=== PATIENT | male | born 1985 | race Caucasian/White ===

== ENCOUNTER 2017-01-27 15:26 | Emergency (ER) | payer OTHER ==
[~2017-01-27] VITALS: Ht 175.3 cm; Wt 79.4 kg
--- NOTE | 2017-01-27 15:35 | NUR ---
[id number] FROM [address]: INTOXICATED. BS IN FIELD BY EMS 110.. PT ASLEEP AT THIS TIME. VSS
--- NOTE | 2017-01-27 16:22 | NUR ---
PT WAS TAKEN TO CT
[2017-01-27 16:26] LABS: BASOPHILS % (AUTO) 0.7 % (0.0-2.0); EOSINOPHILS # (AUTO) 0.2 /CMM (0.0-0.7); EOSINOPHILS % (AUTO) 3.4 % (0.0-6.0); HEMATOCRIT 38 % (39-51); HEMOGLOBIN 12.7 g/dL (13.5-17.5); LYMPHOCYTES # (AUTO) 1.7 /CMM (0.8-4.8); LYMPHOCYTES % (AUTO) 28.7 % (20.0-44.0); MEAN CORPUSCULAR HEMOGLOBIN 28 PG (26.0-33.0); MEAN CORPUSCULAR HGB CONC 34 g/dl (31.0-36.0); MEAN CORPUSCULAR VOLUME 84 fL (80-96); MONOCYTES # (AUTO) 0.5 /CMM (0.1-1.30); MONOCYTES % (AUTO) 8.3 % (2.0-12.0); NEUTROPHILS # (AUTO) 3.6 /CMM (1.8-8.9); NEUTROPHILS % (AUTO) 58.9 % (43.0-81.0); PLATELET COUNT (AUTO) 237 /CMM (150-450); RED BLOOD CELL COUNT(AUTO) 4.49 MIL/uL (4.5-6.0)
[2017-01-27 16:46] LABS: INR 0.96 (0.87-1.13)
[2017-01-27 16:52] LABS: TROPONIN I < 0.017 ng/mL (0.00-0.056)
[2017-01-27 16:57] LABS: THYROID STIMULATING HORMONE 1.219 uIU/mL (0.358-3.74)
[2017-01-27 17:45] LABS: CALCIUM, SERUM 8.7 mg/dL (8.5-10.1); CARBON DIOXIDE 22 mmol/L (21-32); CHLORIDE 104 mmol/L (98-107); CREATININE 0.8 mg/dL (0.6-1.3); GLUCOSE 98 mg/dL (74-106); SALICYLATE 2.4 mg/dL (2.8-20.0); SODIUM SERUM 138 mmol/L (136-145); UREA NITROGEN, BLOOD 12 mg/dL (7-18)
[2017-01-27 17:55] LABS: BILIRUBIN,DIRECT 0.1 mg/dL (0.0-0.2); BILIRUBIN,TOTAL 0.4 mg/dL (0.2-1.0)
[2017-01-27 17:56] LABS: ALKALINE PHOSPHATASE 57 U/L (46-116); ASPARTATE AMINOTRANSFERASE 95 U/L (15-37)
[2017-01-27 17:57] LABS: ACETAMINOPHEN 0 ug/ml (10-30); ALANINE AMINOTRANSFERASE 70 U/L (12-78); TOTAL PROTEIN, SERUM 7.5 g/dL (6.4-8.2)
[2017-01-27 18:00] LABS: ALCOHOL, BLOOD 114 mg/dL (0-0)
[2017-01-27 18:15] LABS: APPEARANCE,URINE CLEAR (CLEAR); BILIRUBIN,URINE NEGATIVE (NEGATIVE); BLOOD, URINE NEGATIVE Ery/uL (NEGATIVE); COLOR,URINE YELLOW (YELLOW); KETONES,URINE NEGATIVE (NEGATIVE); LEUKOCYTE ESTERASE ,URINE NEGATIVE (NEGATIVE); NITRITE, URINE NEGATIVE (NEGATIVE); PROTEIN,URINE NEGATIVE (NEGATIVE); UGLUCOSE NEGATIVE (NEGATIVE); UROBILINOGEN,URINE 0.2 EU/dL (0.2)
--- NOTE | 2017-01-27 18:29 | NUR ---
CALLED [facility] FOR PSYCH EVAL, ETA 1 HOUR
--- NOTE | 2017-01-27 19:00 | NUR ---
[facility] RN AT BEDSIDE
--- NOTE | 2017-01-27 21:24 | NUR ---
PT AWAKE. VSS
--- NOTE | 2017-01-27 23:15 | NUR ---
Patient is resting comfortably in bed with eyes closed. Easily aroused. VSS
--- NOTE | 2017-01-28 02:15 | NUR ---
patient is sleeping comfortably in bed, nad noted.
--- NOTE | 2017-01-28 03:14 | NUR ---
ongoing monitoring. safety in place. nad noted.
[2017-01-28 08:52] VITALS: BP 120/65
--- NOTE | 2017-01-28 09:18 | NUR ---
called kitchen for regular food tray
--- NOTE | 2017-01-28 09:18 | NUR ---
called pharmacy for seromcl
--- NOTE | 2017-01-28 09:35 | NUR ---
PT REFUSED SEROQUEL VERBALIZED HE ONLY TAKES IT AT NIGHT. DR MICHAEL BRAR AWARE
--- NOTE | 2017-01-28 11:20 | NUR ---
Thuan food tray at .
--- NOTE | 2017-01-28 12:30 | NUR ---
IV removed. Catheter intact and site benign. Pressure and 4x4 applied to site. No bleeding noted.
--- NOTE | 2017-01-28 12:39 | NUR ---
Odell provided the patient at .
--- NOTE | 2017-01-28 13:01 | NUR ---
PT VERBALIZED HE WANTS MORE FOOD AND BECAME BELIGIRENT. PT SEEN BY JUAN LUIS AND DR RODRIGUEZ
--- NOTE | 2017-01-28 13:15 | NUR ---
Patient eloped from facility. ER MD notified. DR RODRIGUEZ
== END 2017-01-28 13:19 | disposition left against medical advice (07) ==
LOC: ER 15:31 → EDBD 15:31 → ER 01-28 13:19
DX: Z02.89 Encounter for other administrative examinations (principal); R45.851 Suicidal ideations
CPT/HCPCS: 36415; 70450; 71010; 80048; 80076; 80305; 80329; 81001; 84443; 84484; 85025; 85730; 93005; 99285; A4606; G0480 ×2; Z7610; 81000-TC

== ENCOUNTER 2019-03-09 14:42 | Emergency (ER) | payer OTHER, MEDICAID ==
[~2019-03-09] VITALS: Ht 167.6 cm; Wt 70.8 kg
[2019-03-09] MEDS ORDERED: LORAZEPAM 1 MG TABLET PO ONE (15:30)
[2019-03-09] MEDS ORDERED: BENZTROPINE MESYLATE (2MG/2ML) 2 MG/2 ML AMPUL IM ONE (15:30)
[2019-03-09] MEDS ORDERED: BENZTROPINE MESYLATE (2MG/2ML) 2 MG/2 ML AMPUL ONE (15:34)
[2019-03-09] MEDS ORDERED: LORAZEPAM 1 MG TABLET ONE (15:35)
[2019-03-09 15:43] LABS: BASOPHILS % (AUTO) 0.4 % (0.0-2.0); HEMATOCRIT 42 % (39-51); HEMOGLOBIN 14.2 g/dL (13.5-17.5); LYMPHOCYTES # (AUTO) 1.3 /CMM (0.8-4.8); LYMPHOCYTES % (AUTO) 13.6 % (20.0-44.0); MEAN CORPUSCULAR HGB CONC 34 g/dl (31.0-36.0); MEAN CORPUSCULAR VOLUME 84 fL (80-96); MONOCYTES # (AUTO) 0.7 /CMM (0.1-1.30); MONOCYTES % (AUTO) 6.8 % (2.0-12.0); NEUTROPHILS # (AUTO) 7.6 /CMM (1.8-8.9); NEUTROPHILS % (AUTO) 78.2 % (43.0-81.0); PLATELET COUNT (AUTO) 242 /CMM (150-450); RED BLOOD CELL COUNT(AUTO) 5.02 MIL/uL (4.5-6.0); WHITE BLOOD COUNT (AUTO) 9.7 K/uL (4.3-11.0)
[2019-03-09 15:59] LABS: ALANINE AMINOTRANSFERASE 43 U/L (12-78); ALBUMIN 3.6 g/dL (3.4-5.0); ALCOHOL, BLOOD < 3 mg/dL (0-0); ALKALINE PHOSPHATASE 73 U/L (46-116); ASPARTATE AMINOTRANSFERASE 37 U/L (15-37); BILIRUBIN,DIRECT 0.1 mg/dL (0.0-0.2); BILIRUBIN,TOTAL 0.2 mg/dL (0.2-1.0); CALCIUM, SERUM 9.1 mg/dL (8.5-10.1); CARBON DIOXIDE 25 mmol/L (21-32); CHLORIDE 106 mmol/L (98-107); CREATININE 0.8 mg/dL (0.6-1.3); GLUCOSE 91 mg/dL (74-106); POTASSIUM 3.9 mmol/L (3.5-5.1); SODIUM SERUM 140 mmol/L (136-145); TOTAL PROTEIN, SERUM 7.1 g/dL (6.4-8.2); UREA NITROGEN, BLOOD 15 mg/dL (7-18)
[2019-03-09 16:02] LABS: SALICYLATE < 2.8 mg/dL (2.8-20.0)
--- NOTE | 2019-03-09 17:00 | NUR ---
BIBKATHI AND [employer], FROM [facility], BIZZARRE BEHAVIOR AND BIT HIS TONGUE. ON ROOM AIR, BREATHING EVENLY AND UNLABORED. SITTER AND [employer] AT BEDSIDE FOR CONSTANT MONITORING.
[2019-03-09 17:08] LABS: APPEARANCE,URINE Clear (CLEAR); BILIRUBIN,URINE Negative (NEGATIVE); BLOOD, URINE Negative Ery/uL (NEGATIVE); COLOR,URINE Yellow (YELLOW); KETONES,URINE Negative (NEGATIVE); LEUKOCYTE ESTERASE ,URINE Negative (NEGATIVE); NITRITE, URINE Negative (NEGATIVE); PROTEIN,URINE Negative (NEGATIVE); UGLUCOSE Negative (NEGATIVE); UROBILINOGEN,URINE 0.2 EU/dL (0.2)
--- NOTE | 2019-03-09 17:45 | NUR ---
FOOD PROVIDED AND JUICE ORDERED BY
[2019-03-09 18:39] VITALS: BP 125/81
--- NOTE | 2019-03-09 18:40 | NUR ---
patient discharge in stable condition,in custody. accompanied by ISAK.
== END 2019-03-09 18:39 ==
LOC: ER 14:43
DX: S01.512A Laceration without foreign body of oral cavity, initial encounter (principal); R47.89 Other speech disturbances; F20.9 Schizophrenia, unspecified; F41.9 Anxiety disorder, unspecified; F31.9 Bipolar disorder, unspecified; F10.10 Alcohol abuse, uncomplicated; Y90.0 Blood alcohol level of less than 20 mg/100 ml; W22.8XXA Striking against or struck by other objects, initial encounter; Y93.89 Activity, other specified; Y92.89 Other specified places as the place of occurrence of the external cause; Y99.8 Other external cause status
CPT/HCPCS: 36415; 80048; 80076; 80305; 80307; 80329; 81001; 85025; 96372; 99283; G0480; J0515; 81000-TC

== ENCOUNTER 2022-03-10 05:07 | Emergency (ER) | payer MEDICAID, OTHER ==
[~2022-03-10] VITALS: Ht 165.1 cm; Wt 71.7 kg
--- NOTE | 2022-03-10 05:40 | NUR ---
pt bibself c/o wants vol psych admit. pt is a/o x 3, rr even and unlabored vss, no acute distress noted. patient belongings taken placed in locker, pt in hospital gown. will continue to monitor.
[2022-03-10 05:55] LABS: BASOPHILS % (AUTO) 0.6 % (0.0-2.0); EOSINOPHILS % (AUTO) 1.7 % (0.0-6.0); HEMATOCRIT 40 % (39-51); HEMOGLOBIN 13.6 g/dL (13.5-17.5); LYMPHOCYTES # (AUTO) 1.3 K/uL (0.8-4.8); LYMPHOCYTES % (AUTO) 17.2 % (20.0-44.0); MEAN CORPUSCULAR HGB CONC 34 g/dl (31.0-36.0); MEAN CORPUSCULAR VOLUME 85 fL (80-96); MONOCYTES # (AUTO) 0.5 K/uL (0.1-1.30); MONOCYTES % (AUTO) 6.1 % (2.0-12.0); NEUTROPHILS # (AUTO) 5.6 K/uL (1.8-8.9); NEUTROPHILS % (AUTO) 74.4 % (43.0-81.0); PLATELET COUNT (AUTO) 295 K/uL (150-450); RED BLOOD CELL COUNT(AUTO) 4.75 MIL/uL (4.5-6.0); WHITE BLOOD COUNT (AUTO) 7.5 K/uL (4.3-11.0)
[2022-03-10 06:14] LABS: BILIRUBIN,URINE NEGATIVE (NEGATIVE); COLOR,URINE YELLOW (YELLOW); LEUKOCYTE ESTERASE ,URINE NEGATIVE (NEGATIVE); NITRITE, URINE NEGATIVE (NEGATIVE); PROTEIN,URINE NEGATIVE (NEGATIVE); UGLUCOSE NEGATIVE (NEGATIVE); UROBILINOGEN,URINE 0.2 EU/dL (0.2)
[2022-03-10 06:20] LABS: CARBON DIOXIDE 26 mmol/L (21-32); CHLORIDE 103 mmol/L (98-107); CREATININE 0.8 mg/dL (0.6-1.3); GLUCOSE 85 mg/dL (74-106); POTASSIUM 3.1 mmol/L (3.5-5.1); SODIUM SERUM 137 mmol/L (136-145); UREA NITROGEN, BLOOD 13 mg/dL (7-18)
[2022-03-10 06:26] LABS: ALANINE AMINOTRANSFERASE 69 U/L (12-78); ALBUMIN 4.2 g/dL (3.4-5.0); ALCOHOL, BLOOD < 3 mg/dL (0-0); ALKALINE PHOSPHATASE 64 U/L (46-116); ASPARTATE AMINOTRANSFERASE 50 U/L (15-37); BILIRUBIN,DIRECT 0.1 mg/dL (0.0-0.2); BILIRUBIN,TOTAL 0.4 mg/dL (0.2-1.0); TOTAL PROTEIN, SERUM 7.6 g/dL (6.4-8.2)
[2022-03-10 06:27] LABS: ACETAMINOPHEN < 10 ug/ml (10-30)
--- NOTE | 2022-03-11 06:20 | NUR ---
[facility] INTAKE CALLED BACK THAT THE PATIENT IS NOT ACCEPTED AT [facility] D/T PT'S INSURANCE IS [place].
--- NOTE | 2022-03-11 08:30 | NUR ---
BREAKFAST TRAY PROVIDED TO PT; TRISTAN DE JESUS
[2022-03-11] MEDS ORDERED: POTASSIUM CHLORIDE 20 MEQ TAB.PRT.SR PO ONE ×2 (09:21→09:30)
--- NOTE | 2022-03-11 10:16 | NUR ---
Shayan iraheta in EDM - 03/11/22 at 1016 by NOLVIA Patient discharged to [facility] in stable condition, picked up by transportation rep. Written and verbal after care instructions given. Patient verbalizes understanding of instruction.
--- NOTE | 2022-03-11 13:37 | NUR ---
MARQUITA FRANKS SPEAKING W/ PATIENT
[2022-03-11] MEDS ORDERED: OLANZAPINE 5 MG TABLET PO ONE (14:00)
[2022-03-11] MEDS ORDERED: OLANZAPINE 5 MG TABLET ONE (14:15)
--- NOTE | 2022-03-11 14:41 | NUR ---
Patient discharged to home/homeless in stable condition. Written and verbal after care instructions given. Patient verbalizes understanding of instruction. pt refused homeless waiver/resources. Addendum: 03/11/22 at 1443 by NOLVIA pt denies si/hi at this time.
[2022-03-11 14:43] VITALS: BP 124/80
== END 2022-03-11 14:43 | disposition home or self-care (01) ==
LOC: ER 05:08
DX: R45.851 Suicidal ideations (principal); E87.6 Hypokalemia; Z20.822 Contact with and (suspected) exposure to COVID-19; F31.9 Bipolar disorder, unspecified; F20.9 Schizophrenia, unspecified; G62.9 Polyneuropathy, unspecified
CPT/HCPCS: 99285; 85025; 80048; 80076; 81003; 36415; 87426; 80143; 80320; 80307; C9803; G0480